=== PATIENT | female | born 1965 | race Caucasian/White ===

== ENCOUNTER 2019-01-06 10:56 | Outpatient (CLI) ==
--- NOTE | 2019-01-06 11:31 | DI ---
EXAM: Left hand three-view HISTORY: Left thumb injury COMPARISON: None FINDINGS: The bones are normal. The joints are normal. No focal soft tissue abnormality. IMPERSSION: Normal examination.
--- NOTE | 2019-01-06 11:48 | MAMMO ---
EXAM: Digital screening mammogram with tomosynthesis HISTORY: Screening COMPARISON: 04/15/2011 FINDINGS: Digital MLO and CC views of the right and left breast were performed. Tomosynthesis was performed. Computer aided detection utilized. There are scattered fibroglandular densities. There is no evidence for mass, asymmetry, distortion, or suspicious calcifications in either breast. IMPRESSION: 1. No evidence of malignancy in the right or left breast. 2. Annual screening mammogram is recommended in one year. BIRADS category 1, negative examination
== END 2019-01-06 10:57 | disposition home or self-care (01) ==
LOC: RAD 10:56
PROVIDERS: ATTEND Nurse Practitioner Family
DX: Z12.31 Encounter for screening mammogram for malignant neoplasm of breast (principal); S69.92XA Unspecified injury of left wrist, hand and finger(s), initial encounter